=== PATIENT | male | born 1965 | race African-American/Black ===

== ENCOUNTER 2019-09-01 13:47 | Emergency (ER) | payer OTHER ==
[2019-09-01] MEDS ORDERED: NA CHLORIDE 0.9% 1,000 ML ONE (14:31)
[2019-09-01 14:39] LABS: Absolute Lymphocytes (CBC) 1.1 K/uL (0.7-4.9); Basophils % 0.3 % (0-1.3); Hematocrit 41.3 % (39.6-49.0); Lymphocytes % 9.1 % (15.3-44.8); MPV 8.1 fL (7.6-11.3); RBC Red Blood Cell Count 4.24 M/uL (4.33-5.43)
[2019-09-01] MEDS ORDERED: MORPHINE 4 MG/ML SYR ONE (14:40)
[2019-09-01] MEDS ORDERED: ONDANSETRON 4 MG/2 ML VIAL ONE (14:40)
[2019-09-01 14:51] LABS: ALT/SGPT 26 U/L (12-78); AST/SGOT 24 U/L (15-37); Albumin 3.4 g/dL (3.4-5.0); Alkaline Phosphatase 77 U/L (45-117); BUN Blood Urea Nitrogen 6 mg/dL (7-18); Bicarbonate 27 mmol/L (21-32); Bilirubin Direct 0.2 mg/dL (0-0.2); Bilirubin Total 0.4 mg/dL (0.2-1.0); Glucose Level 138 mg/dL (74-106); Lipase 1002 U/L (73-393); Potassium 3.7 mmol/L (3.5-5.1); Protein, Total 7.6 g/dL (6.4-8.2); Sodium Level 135 mmol/L (136-145)
[2019-09-01 15:04] LABS: Urine Blood TRACE (NEG); Urine Glucose NEGATIVE (NEG); Urine Protein NEGATIVE (NEG)
--- NOTE | 2019-09-01 16:59 | RAD REPORT ---
EXAM DESCRIPTION: CT - Abdomen Pelvis Wo Contrast - 09/01/2019 4:31 pm CLINICAL HISTORY: PAIN diarrhea nausea COMPARISON: No comparisons TECHNIQUE: Axial [address] imaging of the abdomen and pelvis was performed without IV contrast. No IV contrast was given because of allergy, abnormal renal function, patient refusal or physician re quest. Oral contrast was given. All CT scans are performed using dose optimization technique as appropriate and may include automated exposure control or mA/KV adjustment according to patient size. FINDINGS: No suspicious findings in the lung bases. The liver, spleen and pancreas show no suspicious findings on non-contrast imaging. Gallbladder and b iliary tree are also without suspicious finding. No hydronephrosis or suspicious renal mass. No significant adrenal finding. Isodense renal masses an d pyelonephritis cannot be excluded in the absence of IV contrast. The urinary bladder is without sig nificant finding. No dilated bowel loops or bowel wall thickening. The appendix is identified and normal. There is a tr sam amount of stranding in the peritoneal fat on associated with the appendix. Patient has a few smal l nonspecific mesenteric lymph nodes. No free air, free fluid or inflammatory stranding. No hernia, m ass or bulky lymphadenopathy. No suspicious bony findings. IMPRESSION: Noncontrast CT abdomen and pelvis imaging shows no surgically emergent finding or other significant abdominal or pelvic process. Isodense masses and pyelonephritis are not excluded on a noncontrast study. Overall sensitivity is de creased in the absence of contrast.
[2019-09-01] MEDS ORDERED: KETOROLAC 30 MG/ML INJ ONE (17:42)
--- NOTE | 2019-09-01 19:46 | ER ---
Nurse's Notes [facility] Name: Lm Jolly Age: 54 yrs Sex: Male : 1965 Arrival Date: 09/01/2019 Time: 13:48 Bed 8 Private MD: Diagnosis: Acute pancreatitis Presentation: 09/01 13:49 Presenting complaint: EMS states: Diffuse abdominal pain and nausea started this jl7 morning, pt reports eating oysters last night. Transition of care: patient was not received from another setting of care. Onset of symptoms was September 01, 2019. Risk Assessment: Do you want to hurt yourself or someone else? Patient reports no desire to harm self or others. Initial Sepsis Screen: Does the patient meet any 2 criteria? No. Patient's initial sepsis screen is negative. Does the patient have a suspected source of infection? No. Patient's initial sepsis screen is negative. Care prior to arrival: Medication(s) given: zofran 4 mg, IV initiated. 18 GA, in the right antecubital area, Glucose check: 146. 13:49 Method Of Arrival: EMS: [facility] 13:49 Acuity: TAL 3 jl7 Triage Assessment: 13:51 General: Appears in no apparent distress. uncomfortable, Behavior is cooperative. Pain: jl7 Complains of pain in abdomen diffusely Pain currently is 10 out of 10 on a pain scale. Quality of pain is described as aching, Pain began "This morning." Is continuous. Neuro: Level of Consciousness is awake, alert, obeys commands, Oriented to person, place, time, situation. Cardiovascular: Patient's skin is warm and dry. Respiratory: Airway is patent Respiratory effort is even, unlabored, Respiratory pattern is regular, symmetrical. GI: Abdomen is round non-distended, Abd is soft X 4 quads Abdomen is tender to palpation in umbilical area and left lower quadrant. : No signs and/or symptoms were reported regarding the genitourinary system. Derm: Skin is dry, Skin is normal, Skin temperature is warm. Historical: - Allergies: 13:51 No Known Allergies; jl7 - Home Meds: 13:51 Clonidine Oral [Active]; Protonix Oral [Active]; jl7 - PMHx: 13:51 Hypertension; GERD; jl7 - Immunization history:: Adult Immunizations not up to date. - Coronavirus screen:: The patient has NOT traveled to [place], [place], or [place] in the past 14 days. Proceed with normal triage process as indicated. - Social history:: Smoking status: Patient reports the use of cigarette tobacco products, smokes one pack cigarettes per day. Patient uses alcohol, on a daily basis. 12 pack/day. - Family history:: not pertinent. - Ebola Screening: : No symptoms or risks identified at this time. Screenin:53 Abuse screen: Denies threats or abuse. Denies injuries from another. Nutritional jl7 screening: No deficits noted. Tuberculosis screening: No symptoms or risk factors identified. Fall Risk IV access (20 points). Total Bush Fall Scale indicates No Risk (0-24 pts). Assessment: 14:50 Reassessment: Pt done drinking contrast, CT notified. jl7 Vital Signs: 13:51 BP 157 / 97; Pulse 74; Resp 17 S; Temp 98.2(O); Pulse Ox 97% on R/A; Weight 78.47 kg jl7 (R); Height 5 ft. 4 in. (162.56 cm) (R); Pain 10/10; 15:00 BP 149 / 81; Pulse 87; Resp 19 S; Pulse Ox 96% on R/A; Pain 8/10; jl7 17:47 BP 141 / 78; Pulse 94; Resp 20; Pulse Ox 99% on R/A; Pain 10/10; em 13:51 Body Mass Index 29.70 (78.47 kg, 162.56 cm) jl7 ED Course: 13:48 Patient arrived in ED. jl7 13:49 Zoë Rich MD is Attending Physician. ma2 13:50 Triage completed. jl7 13:51 Arm band placed on right wrist. jl7 13:53 Patient has correct armband on for positive identification. Bed in low position. Call jl7 light in reach. Side rails up X 1. Pulse ox on. NIBP on. Warm blanket given. 13:53 Maintain EMS IV. Dressing intact. Good blood return noted. Site clean \\T\\ dry. Gauge \\T\\ jl 7 site: 18 right AC. 14:15 Initial lab(s) drawn, by me, sent to lab. 14:19 Pia Summers RN is Primary Nurse. jl7 17:47 No provider procedures requiring assistance completed. IV discontinued, intact, em bleeding controlled, No redness/swelling at site. Pressure dressing applied. Administered Medications: 14:30 Drug: NS 0.9% 1000 ml Route: IV; Rate: 1 bolus; Site: right antecubital; jl7 17:49 Follow up: IV Status: Order to discontinue infusion; IV Intake: 800ml em 14:38 Drug: Zofran 4 mg Route: IVP; Site: right antecubital; jl7 15:00 Follow up: Response: Nausea is decreased jl7 14:40 Drug: morphine 4 mg Route: IVP; Site: right antecubital; jl7 15:00 Follow up: Response: Pain is decreased jl7 17:40 Drug: TORadol 30 mg Route: IVP; Site: right antecubital; em 17:48 Follow up: Response: Medication administered at discharge. em Intake: 17:49 IV: 800ml; Total: 800ml. em Outcome: 17:25 Discharge ordered by MD. lima 17:47 Discharged to home ambulatory, with family. em 17:47 Condition: good 17:47 Discharge instructions given to patient, family, Instructed on discharge instructions, follow up and referral plans. no drinking with medication, no driving heavy equipment, medication usage, Demonstrated understanding of instructions, follow-up care, medications, Prescriptions given X 3. 17:49 Patient left the ED. em Signatures: Jason Plasencia, RN Rocael Lord RN Pia Mathew RN RN jl7 Alzahri, Mohammad, MD MD ma2
--- NOTE | 2019-09-01 19:46 | EDPHYS ---
Physician Documentation [facility] Name: Lm Jolly Age: 54 yrs Sex: Male : 1965 Arrival Date: 09/01/2019 Time: 13:48 Bed 8 Private MD: ED Physician Zoë Rich HPI: 09/01 14:50 This 54 yrs old Black Male presents to ER via EMS with complaints of Abdominal Pain. ma2 14:50 The patient presents with abdominal pain. Onset: The symptoms/episode began/occurred ma2 gradually, 1 day(s) ago. Associated signs and symptoms: Pertinent positives: nausea, vomiting, and diarrhea, Pertinent negatives: blood in stools, constipation, dysuria. The symptoms are described as burning. Severity of pain: At its worst the pain was mild in the emergency department the pain is unchanged. The patient has experienced similar episodes in the past. Historical: - Allergies: 13:51 No Known Allergies; jl7 - Home Meds: 13:51 Clonidine Oral [Active]; Protonix Oral [Active]; jl7 - PMHx: 13:51 Hypertension; GERD; jl7 - Immunization history:: Adult Immunizations not up to date. - Coronavirus screen:: The patient has NOT traveled to [place], [place], or [place] in the past 14 days. Proceed with normal triage process as indicated. - Social history:: Smoking status: Patient reports the use of cigarette tobacco products, smokes one pack cigarettes per day. Patient uses alcohol, on a daily basis. 12 pack/day. - Family history:: not pertinent. - Ebola Screening: : No symptoms or risks identified at this time. ROS: 14:50 Constitutional: Negative for fever, chills, and weight loss. ma2 14:50 All other systems are negative. Exam: 14:50 Constitutional: This is a well developed, well nourished patient who is awake, alert, ma2 and in no acute distress. Head/Face: Normocephalic, atraumatic. Eyes: Pupils equal round and reactive to light, extra-ocular motions intact. Lids and lashes normal. Conjunctiva and sclera are non-icteric and not injected. Cornea within normal limits. Periorbital areas with no swelling, redness, or edema. ENT: Nares patent. No nasal discharge, no septal abnormalities noted. Tympanic membranes are normal and external auditory canals are clear. Oropharynx with no redness, swelling, or masses, exudates, or evidence of obstruction, uvula midline. Mucous membranes moist. Neck: Trachea midline, no thyromegaly or masses palpated, and no cervical lymphadenopathy. Supple, full range of motion without nuchal rigidity, or vertebral point tenderness. No Meningismus. Chest/axilla: Normal chest wall appearance and motion. Nontender with no deformity. No lesions are appreciated. Cardiovascular: Regular rate and rhythm with a normal S1 and S2. No gallops, murmurs, or rubs. Normal PMI, no JVD. No pulse deficits. Respiratory: Lungs have equal breath sounds bilaterally, clear to auscultation and percussion. No rales, rhonchi or wheezes noted. No increased work of breathing, no retractions or nasal flaring. Abdomen/GI: Soft, non-tender, with normal bowel sounds. No distension or tympany. No guarding or rebound. No evidence of tenderness throughout. Back: No spinal tenderness. No costovertebral tenderness. Full range of motion. MS/ Extremity: Pulses equal, no cyanosis. Neurovascular intact. Full, normal range of motion. Neuro: Awake and alert, GCS 15, oriented to person, place, time, and situation. Cranial nerves II-XII grossly intact. Motor strength 5/5 in all extremities. Sensory grossly intact. Cerebellar exam normal. Normal gait. Vital Signs: 13:51 BP 157 / 97; Pulse 74; Resp 17 S; Temp 98.2(O); Pulse Ox 97% on R/A; Weight 78.47 kg jl7 (R); Height 5 ft. 4 in. (162.56 cm) (R); Pain 10/10; 15:00 BP 149 / 81; Pulse 87; Resp 19 S; Pulse Ox 96% on R/A; Pain 8/10; jl7 17:47 BP 141 / 78; Pulse 94; Resp 20; Pulse Ox 99% on R/A; Pain 10/10; em 13:51 Body Mass Index 29.70 (78.47 kg, 162.56 cm) jl7 MDM: 13:50 Patient medically screened. ma2 14:50 Differential diagnosis: diverticulitis, gastritis, gastroesophageal reflux disease, ma2 Hepatitis, Irritable bowel syndrome. Data reviewed: vital signs, nurses notes. Counseling: I had a detailed discussion with the patient and/or guardian regarding: the historical points, exam findings, and any diagnostic results supporting the discharge/admit diagnosis, the presence of at least one elevated blood pressure reading (>120/80) during this emergency department visit, the need for outpatient follow up. Response to treatment: the patient's symptoms have markedly improved after treatment. 16:10 ED course: has pancreatitis, he is low risk per shantell score, tolerate po, will [facility] discharge with gi f/u. 09/01 14:12 Order name: Basic Metabolic Panel [facility] 09/01 14:12 Order name: CBC with Diff [facility] 09/01 14:12 Order name: Creatinine for Radiology [facility] 09/01 14:12 Order name: Hepatic Function [facility] 09/01 14:12 Order name: Lipase [facility] 09/01 14:28 Order name: Urine Dipstick--Ancillary (enter results) 09/01 14:19 Order name: CT Abd/Pelvis - Without Cont (PO Contrast Only) [facility] 09/01 14:43 Order name: CBC with Automated Diff; Complete Time: 16:09 [facility] 09/01 14:53 Order name: Creatinine (Radiology Only); Complete Time: 16:09 [facility] 09/01 14:54 Order name: Basic Metabolic Panel; Complete Time: 16:09 [facility] 09/01 14:54 Order name: Liver (Hepatic) Function; Complete Time: 16:09 [facility] 09/01 14:55 Order name: Lipase; Complete Time: 16:09 [facility] 09/01 15:08 Order name: Urine Dipstick-Ancillary; Complete Time: 16:09 [facility] 09/01 14:12 Order name: IV Saline Lock; Complete Time: 14:21 [facility] 09/01 14:12 Order name: Labs collected and sent; Complete Time: 14:21 [facility] 09/01 14:12 Order name: Urine Dipstick-Ancillary (obtain specimen); Complete Time: 14:31 [place] Administered Medications: 14:30 Drug: NS 0.9% 1000 ml Route: IV; Rate: 1 bolus; Site: right antecubital; jl7 17:49 Follow up: IV Status: Order to discontinue infusion; IV Intake: 800ml em 14:38 Drug: Zofran 4 mg Route: IVP; Site: right antecubital; jl7 15:00 Follow up: Response: Nausea is decreased jl7 14:40 Drug: morphine 4 mg Route: IVP; Site: right antecubital; jl7 15:00 Follow up: Response: Pain is decreased jl7 17:40 Drug: TORadol 30 mg Route: IVP; Site: right antecubital; em 17:48 Follow up: Response: Medication administered at discharge. em Disposition: 09/01/19 17:25 Discharged to Home. Impression: Acute pancreatitis. - Condition is Stable. - Discharge Instructions: Acute Pancreatitis. - Prescriptions for Zofran 4 mg Oral Tablet - take 1 tablet by ORAL route every 12 hours As needed; 20 tablet. Pepcid 20 mg Oral Tablet - take 1 tablet by ORAL route every 12 hours for 5 days; 10 tablet. Tylenol- Codeine #3 300-30 mg Oral Tablet - take 2 tablet by ORAL route every 6 hours As needed; 30 tablet. - Medication Reconciliation Form, Thank You Letter, Antibiotic Education, Prescription Opioid Use form. - Follow up: Private Physician; When: Tomorrow; Reason: If symptoms return, Continuance of care. Signatures: Dispatcher [employer] EDRocael Higgins RN Pia Mathew RN RN jl7 Zoë Rich MD MD ma2 Corrections: (The following items were deleted from the chart) 17:49 17:25 09/01/2019 17:25 Discharged to Home. Impression: Acute pancreatitis. Condition is em Stable. Discharge Instructions: Acute Pancreatitis. Prescriptions for Zofran 4 mg Oral Tablet - take 1 tablet by ORAL route every 12 hours As needed; 20 tablet, Pepcid 20 mg Oral Tablet - take 1 tablet by ORAL route every 12 hours for 5 days; 10 tablet, Tylenol-Codeine #3 300-30 mg Oral Tablet - take 2 tablet by ORAL route every 6 hours As needed; 30 tablet. and Forms are Medication Reconciliation Form, Thank You Letter, Antibiotic Education, Prescription Opioid Use. Follow up: Private Physician; When: Tomorrow; Reason: If symptoms return, Continuance of care. ma2
[2019-09-03 08:13] VITALS: TEMP 98.2
[2019-09-03 08:16] VITALS: BP 141/78; O2SAT 99
== END 2019-09-01 17:49 | disposition home or self-care (01) ==
LOC: ER 13:47
DX: K85.90 Acute pancreatitis without necrosis or infection, unspecified (principal); I10 Essential (primary) hypertension; F17.210 Nicotine dependence, cigarettes, uncomplicated
CPT/HCPCS: 96361; 85025; 80048; 36415; 80076; 81003; 83690; 74176; 96375; 96374; 99284; J7030; J2405